=== PATIENT | male | born 1995 | race Caucasian/White ===

== ENCOUNTER 2018-09-04 22:46 | Emergency (ER) | payer SELFPAY ==
[~2018-09-04] VITALS: Ht 182.9 cm; Wt 86.2 kg
[2018-09-04 22:59] VITALS: BP 139/84
== END 2018-09-04 23:38 | disposition home or self-care (01) ==
LOC: ER 22:50
DX: S29.8XXA Other specified injuries of thorax, initial encounter (principal); Z90.89 Acquired absence of other organs; V49.69XA Unspecified car occupant injured in collision with other motor vehicles in traffic accident, initial encounter; Y93.89 Activity, other specified; Y92.413 State road as the place of occurrence of the external cause; Y99.8 Other external cause status
CPT/HCPCS: Z7502